=== PATIENT | female | born 1975 | race Two or more races ===

== ENCOUNTER 2021-03-10 17:28 | Day surgery (SDC) | payer OTHER ==
[~2021-03-10] VITALS: Ht 157.5 cm; Wt 75.7 kg
[~2021-03-10 17:28] MED LIST: ALENDRONATE SOD70 MG; BACOFLEN PO; BENADR PO; CATAFLAM PO; COZAAR100 MG PO; CYANOCOBAL1000 MCG/1; FOLIC ACID1 MG; HYDROXYCHLOROQ200 MG; INTEGRA PLUS C1 EACH; METHOTREXATE2.5 MG; PAMELOR25 MG PO; PANTOPRAZOLE SO20 MG; PLAQUENIL PO; SAVELLA100 MG PO; SUCRALFATE1 GM; TOPROL XL25 M1 PO; TRAZO PO; TRAZODONE HCL100 MG; ZANAFLEX4 MG PO
[2021-03-11] MEDS ORDERED: ULTRAM50 MG PO (07:51)
== END 2021-03-11 07:50 | disposition home or self-care (01) ==
LOC: CIR.AMB 17:28 → SURH 03-11 10:02
PROVIDERS: ATTEND Surgery
DX: D12.8 Benign neoplasm of rectum (principal); Z20.822 Contact with and (suspected) exposure to COVID-19

== ENCOUNTER 2024-09-23 11:15 | Inpatient (IN) | payer OTHER ==
[~2024-09-23] VITALS: Ht 157.5 cm; Wt 90.7 kg
[~2024-09-23 11:15] MED LIST changes: +ULTRAM50 MG PO
[2024-09-23] MEDS ORDERED: TOPROL XL100 M1 (13:35)
[2024-10-02] MEDS ORDERED: 0.9 % SODIUM CHLORIDE 1,000 ML IV SCH (09:00)
[2024-10-02] MEDS ORDERED: ONDANSETRON HCL 2 MG/ML VIAL IV PRN (09:00)
[2024-10-02] MEDS ORDERED: TRAMADOL HCL 50 MG TABLET PO PRN (09:00)
[2024-10-02] MEDS ORDERED: HYOSCYAMINE SULFATE 0.125 MG TAB.SUBL SL SCH (09:00)
[2024-10-02] MEDS ORDERED: DIBUCAINE 30 GM TUBE TOP ONE (09:00)
[2024-10-02] MEDS ORDERED: ERTAPENEM SODIUM 1,000 MG VIAL IV ONE (09:00)
[2024-10-02] MEDS ORDERED: LIDOCAINE HCL 1%/EPINEPHRINE 20ML VIAL IJ ONE (09:00)
[2024-10-02] MEDS ORDERED: BUPIVACAINE HCL 30 ML VIAL IJ ONE (09:00)
[2024-10-02] MEDS ORDERED: HEMOSTATIC MATRIX 1 KIT KIT TOP ONE (09:00)
[2024-10-02] MEDS ORDERED: FAMOTIDINE/PF 20 MG/2 ML VIAL IV PUSH SCH (09:00)
[2024-10-02] MEDS ORDERED: POVIDONE-IODINE 118 ML BOTT TOP ONE (09:00)
[2024-10-02] MEDS ORDERED: DEXTROSE 50 % IN WATER 0.5 G/ML DISP.SYRIN IV PRN (09:00)
[2024-10-02] MEDS ORDERED: DIPHENHYDRAMINE HCL 50 MG/ML VIAL 1ML IV PRN (09:00)
[2024-10-02] MEDS ORDERED: METFORMIN HCL500 M4 (09:04)
[2024-10-02] MEDS ORDERED: LEFLUNOMIDE10 MG (09:04)
[2024-10-02] MEDS ORDERED: LORAZEPAM1 MG (09:04)
[2024-10-02] MEDS ORDERED: DIVALPROEX SOD500 MG (09:04)
[2024-10-02] MEDS ORDERED: QUETIAPINE FUM200 MG (09:04)
[2024-10-02] MEDS ORDERED: LOSARTAN POTASS50 MG (09:05)
[2024-10-02] MEDS ORDERED: LEVOTHYROXINE50 MCG (09:05)
[2024-10-02] MEDS ORDERED: RESTORIL30 MG (09:05)
[2024-10-02] MEDS ORDERED: METOPROLOL SUC100 MG (09:05)
[2024-10-02] MEDS ORDERED: SAVELLA50 MG (09:05)
[2024-10-02] MEDS ORDERED: FUROSEMIDE20 MG (09:05)
[2024-10-02] MEDS ORDERED: CILOSTAZOL50 MG (09:05)
[2024-10-02] MEDS ORDERED: SUGAMMADEX SODIUM 200 MG/2 ML VIAL IV ONE (09:15)
[2024-10-02 11:11] LABS: HEMATOCRIT 36.1 % (36.0-45.00); HEMOGLOBIN 12.3 g/dL (12.0-15.00); MEAN CORPUSCULAR HEMOGLOBIN 29.2 pg (27.00-32.0); PLATELET COUNT 282 K/uL (150-450); RED BLOOD COUNT 4.19 M/uL (4.00-6.00)
[2024-10-02 11:59] LABS: ALBUMIN 3.3 gm/dL (3.4-5.0); CALCIUM 8.6 mg/dL (8.5-10.1); CREATININE SERUM 0.91 mg/dL (0.55-1.02); GFR 66.26; MAGNESIUM 1.6 mg/dL (1.8-2.4); PHOSPHOROUS 2.7 mg/dL (2.5-4.9); POTASSIUM 4.73 mEq/L (3.5-5.1)
[2024-10-02 15:00] VITALS: BP 132/88; O2SAT 96
[2024-10-02] MEDS ORDERED: POLYETHYLENE GLYCOL 3350 17 GM BLIST.PACK PO SCH (17:00)
[2024-10-03 00:51] VITALS: BP 132/83; O2SAT 100
[2024-10-03 07:03] LABS: HEMATOCRIT 31.9 % (36.0-45.00); HEMOGLOBIN 10.8 g/dL (12.0-15.00); MEAN CELL VOLUME 86.9 fL (80.00-100.00); MEAN CORPUSCULAR HEMOGLOBIN 29.4 pg (27.00-32.0); MEAN CORPUSCULAR HGB CONC 33.8 g/dl (32.0-36.0); PLATELET COUNT 225 K/uL (150-450); RED BLOOD COUNT 3.67 M/uL (4.00-6.00); RED CELL DISTRIBUTION WIDTH 15.6 % (11.5-14.5)
[2024-10-03 08:00] VITALS: BP 115/71; O2SAT 98
[2024-10-03] MEDS ORDERED: PANTOPRAZOLE SODIUM 40 MG/VIAL VIAL IV SCH (08:00)
[2024-10-03] MEDS ORDERED: PANTOPRAZOLE SODIUM 40 MG/VIAL VIAL IV ONE (08:00)
[2024-10-03 08:59] LABS: ALBUMIN 2.7 gm/dL (3.4-5.0); CALCIUM 7.7 mg/dL (8.5-10.1); CREATININE SERUM 0.76 mg/dL (0.55-1.02); GFR 81.57; MAGNESIUM 1.7 mg/dL (1.8-2.4); PHOSPHOROUS 2.3 mg/dL (2.5-4.9); POTASSIUM 4.59 mEq/L (3.5-5.1)
[2024-10-03] MEDS ORDERED: PANTOPRAZOLE SODIUM 80 MG in 0.9 % SODIUM CHLORIDE 100 ML IV SCH (10:30)
[2024-10-03] MEDS ORDERED: DIPHENHYDRAMINE HCL 50 MG/ML VIAL 1ML IV SCH (14:00)
[2024-10-03] MEDS ORDERED: MEROPENEM 500 MG/VIAL VIAL IV SCH (14:00)
[2024-10-03 16:00] VITALS: BP 121/70; O2SAT 100
[2024-10-03] MEDS ORDERED: ENOXAPARIN SODIUM 40 MG/0.4 ML SYRINGE SUBCUTANEO SCH (17:00)
[2024-10-03 18:35] LABS: URINE APPEARANCE Cloudy; URINE BILIRRUBIN Negative (NEGATIVE); URINE BLOOD Trace; URINE COLOR Yellow; URINE KETONE Trace (NEGATIVE); URINE LEUKOCYTE Trace; URINE NITRATE Negative; URINE PROTEIN Negative (NEGATIVE); URINE UROBILINOGEN 0.2 E.U./dl
[2024-10-03 18:39] LABS: URINE CAST 1.98 uL (0.0-1.40); URINE EPITHELIAL CELLS 141.6 uL (0.0-38.8); URINE RBC 36.3 uL (0.0-20.8); URINE WBC 49.7 uL (0.0-23.2)
[2024-10-03 19:32] LABS: URINE GLUCOSE 250 MG/DL (NEGATIVE); URINE MUCUS SCANT
[2024-10-03 19:33] LABS: URINE YEAST MODERATE /hpf
[2024-10-04 00:53] VITALS: BP 143/84; O2SAT 98
[2024-10-04] MEDS ORDERED: ENOXAPARIN SODIUM 40 MG/0.4 ML SYRINGE SUBCUTANEO SCH (09:00)
[2024-10-04] MEDS ORDERED: TRAMADOL HCL 50 MG TABLET PO PRN (09:30)
[2024-10-04 09:56] VITALS: BP 141/98; O2SAT 100
[2024-10-04] MEDS ORDERED: DICYCLOMINE HCL 10 MG CAPSULE PO SCH (12:43)
[2024-10-04] MEDS ORDERED: DIPHENHYDRAMINE HCL 50 MG/ML VIAL 1ML IV NR (12:45)
[2024-10-04] MEDS ORDERED: DIATRIZOATE MEGLUMINE, SODIUM 30 ML BOTTLE PO NR (13:30)
[2024-10-04 16:05] LABS: HEMATOCRIT 31.5 % (36.0-45.00); HEMOGLOBIN 10.6 g/dL (12.0-15.00); MEAN CELL VOLUME 86.8 fL (80.00-100.00); MEAN CORPUSCULAR HEMOGLOBIN 29.2 pg (27.00-32.0); MEAN CORPUSCULAR HGB CONC 33.6 g/dl (32.0-36.0); PLATELET COUNT 264 K/uL (150-450); RED BLOOD COUNT 3.63 M/uL (4.00-6.00); RED CELL DISTRIBUTION WIDTH 15.8 % (11.5-14.5)
[2024-10-04 16:21] VITALS: BP 131/79; O2SAT 96
[2024-10-04] MEDS ORDERED: AA 4.25%/CAL/LYTES/DEXT 5% 1,000 ML PERIFERAL SCH (17:00)
[2024-10-04 17:14] LABS: ALBUMIN 2.7 gm/dL (3.4-5.0); BILIRUBIN TOTAL 0.47 mg/dL (0.3-1.2); CALCIUM 7.8 mg/dL (8.5-10.1); CREATININE SERUM 0.77 mg/dL (0.55-1.02); GFR 80.35; GLOBULINA 3.1 G/DL (2.4-3.5); MAGNESIUM 1.5 mg/dL (1.8-2.4); PHOSPHOROUS 2.1 mg/dL (2.5-4.9); POTASSIUM 3.64 mEq/L (3.5-5.1); TOTAL PROTEIN 5.8 gm/dL (6.4-8.2)
[2024-10-05 01:04] VITALS: BP 140/88; O2SAT 99
[2024-10-05] MEDS ORDERED: LEVOTHYROXINE SODIUM 50 MCG TABLET PO SCH (06:00)
[2024-10-05 10:00] VITALS: BP 138/83; O2SAT 99
[2024-10-05 16:00] VITALS: BP 129/76; O2SAT 98
[2024-10-05 23:49] VITALS: BP 163/93; O2SAT 98; O2SAT 99
[2024-10-06 08:21] VITALS: BP 138/80; O2SAT 97
[2024-10-06 16:15] VITALS: BP 140/77; O2SAT 97
[2024-10-06 21:02] LABS: HEMATOCRIT 30.2 % (36.0-45.00); HEMOGLOBIN 10.3 g/dL (12.0-15.00); MEAN CELL VOLUME 86.1 fL (80.00-100.00); MEAN CORPUSCULAR HEMOGLOBIN 29.5 pg (27.00-32.0); MEAN CORPUSCULAR HGB CONC 34.3 g/dl (32.0-36.0); PLATELET COUNT 267 K/uL (150-450); RED CELL DISTRIBUTION WIDTH 15.5 % (11.5-14.5)
[2024-10-06 21:23] LABS: ALBUMIN 2.7 gm/dL (3.4-5.0); BILIRUBIN TOTAL 0.39 mg/dL (0.3-1.2); CALCIUM 8.3 mg/dL (8.5-10.1); CREATININE SERUM 0.7 mg/dL (0.55-1.02); GFR 89.69; GLOBULINA 3.1 G/DL (2.4-3.5); MAGNESIUM 1.6 mg/dL (1.8-2.4); PHOSPHOROUS 2.4 mg/dL (2.5-4.9); POTASSIUM 3.94 mEq/L (3.5-5.1); TOTAL PROTEIN 5.8 gm/dL (6.4-8.2)
[2024-10-06 21:43] LABS: C-REACTIVE PROTEIN 5.66 MG/DL (0.00-0.29)
[2024-10-07] VITALS: BP 139/90; O2SAT 100
[2024-10-07] MEDS ORDERED: ENALAPRILAT DIHYDRATE 1.25 MG/ML VIAL IV PRN (10:45)
[2024-10-07] MEDS ORDERED: DEXTROSE 5 %-0.45 % SOD CHLORD 1,000 ML IV SCH (10:45)
[2024-10-07] MEDS ORDERED: TRAMADOL HCL 50 MG TABLET PO PRN (11:30)
[2024-10-07] MEDS ORDERED: METOPROLOL SUCCINATE 100 MG TAB.SR.24H PO NR (12:00)
[2024-10-07] MEDS ORDERED: MAGNESIUM SULFATE IN WATER 50 ML IV NR (12:00)
[2024-10-07] MEDS ORDERED: LACTULOSE 20 G/30 ML BLIST.PACK PO NR (12:31)
[2024-10-07] MEDS ORDERED: ONDANSETRON HCL 2 MG/ML VIAL IV PRN (13:45)
[2024-10-07 18:18] VITALS: BP 101/67; O2SAT 97
[2024-10-07] MEDS ORDERED: TEMAZEPAM 15 MG CAPSULE PO SCH (21:00)
[2024-10-07 23:16] LABS: URINE APPEARANCE Clear; URINE BILIRRUBIN Negative (NEGATIVE); URINE BLOOD Negative; URINE COLOR Yellow; URINE GLUCOSE Negative (NEGATIVE); URINE KETONE 15 (NEGATIVE); URINE LEUKOCYTE Trace; URINE NITRATE Negative; URINE PROTEIN Negative (NEGATIVE)
[2024-10-07 23:20] LABS: URINE BACTERIA 211.6 uL (0.0-1933); URINE EPITHELIAL CELLS 50.7 uL (0.0-38.8); URINE RBC 13.8 uL (0.0-20.8); URINE WBC 6.9 uL (0.0-23.2)
[2024-10-08] VITALS: BP 146/79; O2SAT 97
[2024-10-08 00:07] LABS: URINE CAST 0.15 uL (0.0-1.40); URINE CRYSTALS MODERATE /HPF
[2024-10-08 00:08] LABS: URINE YEAST FEW /hpf
[2024-10-08 08:41] VITALS: BP 126/72; O2SAT 99
[2024-10-08] MEDS ORDERED: METOPROLOL SUCCINATE 100 MG TAB.SR.24H PO SCH (09:00)
[2024-10-08 12:23] LABS: HEMATOCRIT 27.1 % (36.0-45.00); MEAN CELL VOLUME 87.9 fL (80.00-100.00); MEAN CORPUSCULAR HEMOGLOBIN 28.8 pg (27.00-32.0); MEAN CORPUSCULAR HGB CONC 32.8 g/dl (32.0-36.0); PLATELET COUNT 227 K/uL (150-450); RED BLOOD COUNT 3.08 M/uL (4.00-6.00); RED CELL DISTRIBUTION WIDTH 15.5 % (11.5-14.5)
[2024-10-08 12:25] LABS: HEMOGLOBIN 8.9 g/dL (12.0-15.00)
[2024-10-08 12:46] LABS: ALBUMIN 2.3 gm/dL (3.4-5.0); BILIRUBIN TOTAL 0.33 mg/dL (0.3-1.2); CALCIUM 7.7 mg/dL (8.5-10.1); CREATININE SERUM 0.62 mg/dL (0.55-1.02); GFR 103.18; GLOBULINA 2.8 G/DL (2.4-3.5); MAGNESIUM 1.5 mg/dL (1.8-2.4); PHOSPHOROUS 2.4 mg/dL (2.5-4.9); POTASSIUM 4.14 mEq/L (3.5-5.1); TOTAL PROTEIN 5.1 gm/dL (6.4-8.2); TSH 0.388 uIU/mL (0.358-3.74)
[2024-10-08] MEDS ORDERED: POTASSIUM PHOS,M-BASIC-D-BASIC 3 MM/ML VIAL IV NR (13:00)
[2024-10-08] MEDS ORDERED: MAGNESIUM SULFATE IN WATER 50 ML IV NR (13:45)
[2024-10-08 16:00] VITALS: BP 117/81; O2SAT 97
[2024-10-08] MEDS ORDERED: SOD FERRIC GLUC COMPLX/SUCROSE 62.5 MG in 0.9 % SODIUM CHLORIDE 50 ML IV SCH (17:00)
[2024-10-08] MEDS ORDERED: PANTOPRAZOLE SODIUM 40 MG/VIAL VIAL IV SCH (21:00)
[2024-10-09] VITALS: BP 90/61; O2SAT 97
[2024-10-09 07:24] LABS: HEMOGLOBIN 9.8 g/dL (12.0-15.00); MEAN CELL VOLUME 86.3 fL (80.00-100.00); MEAN CORPUSCULAR HEMOGLOBIN 29.3 pg (27.00-32.0); PLATELET COUNT 266 K/uL (150-450); RED BLOOD COUNT 3.36 M/uL (4.00-6.00); RED CELL DISTRIBUTION WIDTH 15.4 % (11.5-14.5)
[2024-10-09 08:26] VITALS: BP 125/76; O2SAT 100
[2024-10-09 08:27] LABS: ALBUMIN 2.5 gm/dL (3.4-5.0); BILIRUBIN TOTAL 0.35 mg/dL (0.3-1.2); CALCIUM 8.2 mg/dL (8.5-10.1); CREATININE SERUM 0.53 mg/dL (0.55-1.02); GFR 123.65; GLOBULINA 3.1 G/DL (2.4-3.5); MAGNESIUM 1.8 mg/dL (1.8-2.4); PHOSPHOROUS 2.3 mg/dL (2.5-4.9); POTASSIUM 3.74 mEq/L (3.5-5.1); TOTAL PROTEIN 5.6 gm/dL (6.4-8.2)
[2024-10-09] MEDS ORDERED: POTASSIUM PHOS,M-BASIC-D-BASIC 3 MM/ML VIAL IV NR (10:15)
[2024-10-09] MEDS ORDERED: fentaNYL CITRATE 50 MCG/ML AMPUL IV ONE (11:15)
[2024-10-09] MEDS ORDERED: MIDAZOLAM HCL 2 MG/2 ML VIAL IV ONE ×2 (11:15→11:30)
[2024-10-09] MEDS ORDERED: DIPHENHYDRAMINE HCL 50 MG/ML VIAL 1ML IV NR (11:15)
[2024-10-09] MEDS ORDERED: ENOXAPARIN SODIUM 60 MG/0.6 ML SYRINGE SUBCUTANEO STA (11:49)
[2024-10-09] MEDS ORDERED: TRAMADOL HCL 50 MG TABLET PO PRN (14:45)
[2024-10-09 16:00] VITALS: BP 154/70; O2SAT 100
[2024-10-09] MEDS ORDERED: ENOXAPARIN SODIUM 100 MG/ML SYRINGE SUBCUTANEO SCH (21:00)
[2024-10-09] MEDS ORDERED: DIPHENHYDRAMINE HCL 50 MG/ML VIAL 1ML IV SCH (21:00)
[2024-10-09] MEDS ORDERED: VANCOMYCIN HCL 1,000 MG VIAL IV SCH (21:00)
[2024-10-10] VITALS: BP 117/80; O2SAT 97
[2024-10-10 08:00] VITALS: BP 160/90; O2SAT 99
[2024-10-10 16:10] VITALS: BP 128/70; O2SAT 95
[2024-10-10] MEDS ORDERED: LOSARTAN POTASSIUM 50 MG TABLET PO SCH (17:00)
[2024-10-10] MEDS ORDERED: TAMSULOSIN HCL 0.4 MG CAP PO SCH (21:00)
[2024-10-10] MEDS ORDERED: DIVALPROEX SODIUM 500 MG TAB.ER.24H PO SCH (21:00)
[2024-10-11 00:49] VITALS: BP 125/75; O2SAT 100
[2024-10-11 08:00] VITALS: BP 127/68; O2SAT 98
[2024-10-11] MEDS ORDERED: LORazepam 1 MG TABLET PO SCH (09:00)
[2024-10-11 09:21] LABS: HEMATOCRIT 26.1 % (36.0-45.00); MEAN CELL VOLUME 87.1 fL (80.00-100.00); MEAN CORPUSCULAR HGB CONC 33.7 g/dl (32.0-36.0); PLATELET COUNT 230 K/uL (150-450); RED CELL DISTRIBUTION WIDTH 15.5 % (11.5-14.5)
[2024-10-11 09:23] LABS: CALCIUM 7.6 mg/dL (8.5-10.1); CREATININE SERUM 0.7 mg/dL (0.55-1.02); GFR 89.69; MAGNESIUM 1.5 mg/dL (1.8-2.4); PHOSPHOROUS 2.1 mg/dL (2.5-4.9); POTASSIUM 3.2 mEq/L (3.5-5.1)
[2024-10-11 09:42] LABS: MEAN CORPUSCULAR HEMOGLOBIN 29.3 pg (27.00-32.0)
[2024-10-11 09:43] LABS: HEMOGLOBIN 8.8 g/dL (12.0-15.00)
[2024-10-11] MEDS ORDERED: MAGNESIUM SULFATE IN WATER 50 ML IV NR (11:00)
[2024-10-11] MEDS ORDERED: POTASSIUM CHLORIDE 20MEQ/100ML H2O PB IV NR (11:00)
[2024-10-11] MEDS ORDERED: ORPHENADRINE CITRATE 100 MG TABLET PO STA (12:47)
[2024-10-11] MEDS ORDERED: FUROsemide 20 MG/2 ML VIAL IV SCH (13:00)
[2024-10-11] MEDS ORDERED: POTASSIUM PHOS,M-BASIC-D-BASIC 3 MM/ML VIAL IV ONE (17:00)
[2024-10-11 18:55] VITALS: BP 121/69; O2SAT 98
[2024-10-11] MEDS ORDERED: ORPHENADRINE CITRATE 100 MG TABLET PO SCH (21:00)
[2024-10-12 00:47] VITALS: BP 136/72; O2SAT 99
[2024-10-12 08:00] VITALS: BP 150/85; O2SAT 99
[2024-10-12] MEDS ORDERED: FLUCONAZOLE 100 MG TABLET PO NR (13:30)
[2024-10-12 16:00] VITALS: BP 130/71; O2SAT 99
[2024-10-12] MEDS ORDERED: ONDANSETRON HCL 2 MG/ML VIAL IV PRN (17:30)
[2024-10-12 20:26] LABS: HEMATOCRIT 38.5 % (36.0-45.00); HEMOGLOBIN 12.9 g/dL (12.0-15.00); MEAN CELL VOLUME 83.7 fL (80.00-100.00); MEAN CORPUSCULAR HEMOGLOBIN 28.1 pg (27.00-32.0); MEAN CORPUSCULAR HGB CONC 33.5 g/dl (32.0-36.0); PLATELET COUNT 169 K/uL (150-450); RED CELL DISTRIBUTION WIDTH 16.3 % (11.5-14.5)
[2024-10-13 00:43] VITALS: BP 139/73; O2SAT 100
[2024-10-13] MEDS ORDERED: PANTOPRAZOLE SODIUM 40 MG TABLET.DR PO SCH (06:00)
[2024-10-13 06:58] LABS: HEMATOCRIT 39.2 % (36.0-45.00); HEMOGLOBIN 13.4 g/dL (12.0-15.00); MEAN CELL VOLUME 83.5 fL (80.00-100.00); MEAN CORPUSCULAR HEMOGLOBIN 28.5 pg (27.00-32.0); MEAN CORPUSCULAR HGB CONC 34.1 g/dl (32.0-36.0); PLATELET COUNT 260 K/uL (150-450); RED BLOOD COUNT 4.69 M/uL (4.00-6.00); RED CELL DISTRIBUTION WIDTH 16.8 % (11.5-14.5)
[2024-10-13 07:36] LABS: CALCIUM 8.8 mg/dL (8.5-10.1); CREATININE SERUM 0.74 mg/dL (0.55-1.02); GFR 84.12; MAGNESIUM 1.8 mg/dL (1.8-2.4); PHOSPHOROUS 2.9 mg/dL (2.5-4.9); POTASSIUM 3.51 mEq/L (3.5-5.1)
[2024-10-13 08:20] VITALS: BP 194/92; O2SAT 97
[2024-10-13] MEDS ORDERED: FLUCONAZOLE 100 MG TABLET PO SCH (09:00)
[2024-10-13] MEDS ORDERED: APIXABAN 5 MG TABLET PO SCH (09:00)
[2024-10-13] MEDS ORDERED: ELIQUIS5 MG PO (11:42)
[2024-10-13] MEDS ORDERED: PANTOPRAZOLE SO40 MG PO (11:42)
[2024-10-13] MEDS ORDERED: LOSARTAN POTASS50 MG PO (11:42)
[2024-10-13] MEDS ORDERED: METOPROLOL SUC100 MG PO (11:42)
[2024-10-13] MEDS ORDERED: DIVALPROEX SOD500 MG PO (11:42)
[2024-10-13] MEDS ORDERED: FLUCONAZOLE150 MG PO (11:42)
[2024-10-13] MEDS ORDERED: LORAZEPAM1 MG PO (11:42)
[2024-10-13] MEDS ORDERED: RESTORIL30 MG PO (11:42)
[2024-10-13] MEDS ORDERED: FUROSEMIDE20 MG PO (11:43)
[2024-10-13] MEDS ORDERED: PAMELOR25 MG PO (11:43)
[2024-10-13] MEDS ORDERED: FOLIC ACID1 MG PO (11:43)
[2024-10-13] MEDS ORDERED: LEVOTHYROXINE50 MCG PO (11:43)
[2024-10-13] MEDS ORDERED: TRAMADOL HCL50 MG PO (11:44)
== END 2024-10-13 14:04 | disposition home or self-care (01) | DRG 348 ==
LOC: O/R 10-02 05:30 → SURH 10-02 05:30 → SURG 10-02 07:00 → SURH 10-02 15:01
PROVIDERS: Internal Medicine Geriatric Medicine; Internal Medicine Infectious Disease; ADMIT Surgery; ATTEND Surgery
PROC: 0D5P7ZZ Destruction of Rectum, Via Natural or Artificial Opening (ICD-10-PCS; 2024-10-02)
PROC: 0DBP7ZZ Excision of Rectum, Via Natural or Artificial Opening (ICD-10-PCS; principal; 2024-10-02 07:00)
PROC: BW21YZZ Computerized Tomography (CT Scan) of Abdomen and Pelvis using Other Contrast (ICD-10-PCS; 2024-10-04)
PROC: 02HV33Z Insertion of Infusion Device into Superior Vena Cava, Percutaneous Approach (ICD-10-PCS; 2024-10-07)
PROC: B24BZZZ Ultrasonography of Heart with Aorta (ICD-10-PCS; 2024-10-08)
PROC: 0DJD8ZZ Inspection of Lower Intestinal Tract, Via Natural or Artificial Opening Endoscopic (ICD-10-PCS; 2024-10-09)
PROC: B54NZZZ Ultrasonography of Left Upper Extremity Veins (ICD-10-PCS; 2024-10-09)
PROC: 30233N1 Transfusion of Nonautologous Red Blood Cells into Peripheral Vein, Percutaneous Approach (ICD-10-PCS; 2024-10-12)
DX: D12.8 Benign neoplasm of rectum (principal); I82.C12 Acute embolism and thrombosis of left internal jugular vein; K56.7 Ileus, unspecified; K92.1 Melena; K91.89 Other postprocedural complications and disorders of digestive system; N31.9 Neuromuscular dysfunction of bladder, unspecified; R33.9 Retention of urine, unspecified; D64.9 Anemia, unspecified; M79.7 Fibromyalgia

== ENCOUNTER 2025-04-27 06:55 | Day surgery (SDC) | payer OTHER ==
[~2025-04-27 06:55] MED LIST changes: +CILOSTAZOL50 MG; +DIVALPROEX SOD500 MG; +DIVALPROEX SOD500 MG PO; +ELIQUIS5 MG PO; +FLUCONAZOLE150 MG PO; +FOLIC ACID1 MG PO; +FUROSEMIDE20 MG; +FUROSEMIDE20 MG PO; +LEFLUNOMIDE10 MG; +LEVOTHYROXINE50 MCG; +LEVOTHYROXINE50 MCG PO; +LORAZEPAM1 MG; +LORAZEPAM1 MG PO; +LOSARTAN POTASS50 MG; +LOSARTAN POTASS50 MG PO; +METFORMIN HCL500 M4; +METOPROLOL SUC100 MG; +METOPROLOL SUC100 MG PO; +PANTOPRAZOLE SO40 MG PO; +QUETIAPINE FUM200 MG; +RESTORIL30 MG; +RESTORIL30 MG PO; +SAVELLA50 MG; +TOPROL XL100 M1; +TRAMADOL HCL50 MG PO
[2025-04-27] MEDS ORDERED: DIPHENHYDRAMINE HCL 50 MG/ML VIAL 1ML IV ONE (10:45)
[2025-04-27] MEDS ORDERED: MIDAZOLAM HCL 2 MG/2 ML VIAL IV ONE (10:45)
[2025-04-27] MEDS ORDERED: fentaNYL CITRATE 50 MCG/ML AMPUL IV ONE (10:45)
== END 2025-04-27 12:05 | disposition home or self-care (01) ==
LOC: AMB-ENDOS 06:55
PROVIDERS: ATTEND Surgery
DX: K57.30 Diverticulosis of large intestine without perforation or abscess without bleeding (principal); D37.5 Neoplasm of uncertain behavior of rectum; R19.4 Change in bowel habit; Z85.040 Personal history of malignant carcinoid tumor of rectum; Z88.5 Allergy status to narcotic agent; Z88.8 Allergy status to other drugs, medicaments and biological substances